=== PATIENT | female | born 1970 | race Hispanic/Latino ===

== ENCOUNTER 2018-05-18 11:33 | Emergency (ER) | payer MEDICAID ==
--- NOTE | 2018-05-18 13:37 | ED PDOC ---
HPI: Chest Pain Time Seen by Provider: 05/18/18 13:12 Chief Complaint (Nursing): Chest Pain Additional Complaint(s): Pt reports midsternal CP that started @ 10 AM today, constant, radiates to back, worse with movement of both arms. Denies SOB, cough, palpitations, OCP use, recent travel, leg pain/swelling. Past Medical History Reviewed: Nursing Documentation, Vital Signs Vital Signs: Last Vital Signs Temp 97.8 F 05/18/18 12:27 Pulse 70 05/18/18 12:27 Resp 20 05/18/18 12:27 BP 142/78 05/18/18 12:27 Pulse Ox 98 05/18/18 12:27 - Medical History PMH: No Chronic Diseases - Family History Family History: States: Unknown Family Hx - Social History Current smoker - smoking cessation education provided: No Ex-Smoker (has not smoked in the last 12 months): Yes Alcohol: Social - Allergies Allergies/Adverse Reactions: Allergies Allergy/AdvReac Type Severity Reaction Status Date / Time No Known Allergies Allergy Verified 05/18/18 12:27 ROS Risk Score for UA/NSTEMI - ROS Risk Score Age > 64: NO 3 or more CAD Risk Factors: NO Known CAD (Stenosis greater than 50%): NO Aspirin use in past 7 days: NO Severe Angina: NO EKG ST changes greater than 0.5mm: NO Positive Cardiac Marker: NO ROS Score: 0 Risk %: 5% Review of Systems Constitutional: Negative for: Fever, Chills Cardiovascular: Positive for: Chest Pain. Negative for: Palpitations Respiratory: Negative for: Cough, Shortness of Breath Gastrointestinal: Negative for: Nausea, Vomiting, Abdominal Pain, Diarrhea Genitourinary Female: Negative for: Dysuria, Hematuria Musculoskeletal: Positive for: Back Pain Skin: Negative for: Rash, Lesions Neurological: Negative for: Headache Physical Exam - Reviewed Nursing Documentation Reviewed: Yes Vital Signs Reviewed: Yes - Physical Exam Appears: Positive for: Well, No Acute Distress Head Exam: Positive for: ATRAUMATIC, NORMAL INSPECTION Skin: Positive for: Normal Color, Warm, Dry Eye Exam: Positive for: Normal appearance, EOMI, PERRL Cardiovascular/Chest: Positive for: Regular Rate, Rhythm. Negative for: Chest Non Tender (Minimal midsternal chest tenderness) Respiratory: Positive for: Normal Breath Sounds. Negative for: Rales, Rhonchi, Wheezing Back: Positive for: Normal Inspection. Negative for: L CVA Tenderness, R CVA Tenderness Extremity: Positive for: Normal ROM Neurologic/Psych: Positive for: Alert, Oriented - Laboratory Results Result Diagrams: 05/18/18 14:00 05/18/18 14:00 - ECG O2 Sat by Pulse Oximetry: 98 Medical Decision Making Medical Decision Makin yo female with midsternal chest pain. - labs - EKG - CXR Time: 1700 Patient is being endorsed from provider to Dr. Elizabeth Boyer. Disposition - Patient ED Disposition Is Patient to be Admitted: Transfer of Care - Disposition Disposition: Transfer of Care Disposition Time: 17:00 Forms: [employer] (Mauritanian) Patient Signed Over To: Elizabeth Boyer
[2018-05-18 14:27] LABS: BASO # 0.1 K/uL (0.0-0.2); BASO % 1.1 % (0.0-2.0); EOS # 0.2 K/uL (0.0-0.7); EOS % 1.9 % (0.0-4.0); HEMOGLOBIN 13.6 g/dL (12.0-16.0); LYMPH # 2.6 K/uL (1.0-4.3); LYMPH % 22.2 % (20.0-40.0); MEAN CELL VOLUME 86.7 fl (81.0-99.0); MEAN CORPUSCULAR HEMOGLOBIN 28.5 pg (27.0-31.0); MEAN CORPUSCULAR HGB CONC 32.8 g/dL (33.0-37.0); MEAN PLATELET VOLUME 10.2 fl (7.2-11.7); MONO # 0.5 K/uL (0.0-0.8); MONO % 4.4 % (0.0-10.0); NEUT # 8.3 K/uL (1.8-7.0); NEUT % 70.4 % (50.0-75.0); NRBC % 0.1 % (0.0-0.0); RBC 4.77 Mil/uL (3.80-5.20); RED CELL DISTRIBUTION WIDTH 14.5 % (11.5-14.5); WHITE BLOOD COUNT 11.8 K/uL (4.8-10.8)
[2018-05-18 14:35] LABS: ALB/GLOB RATIO 1.2 (1.0-2.1); ALBUMIN 4.2 g/dL (3.5-5.0); ALT/SGPT 32 U/L (9-52); AST/SGOT 29 U/L (14-36); BLOOD UREA NITROGEN 13 mg/dl (7-17); CALCIUM 9.8 mg/dL (8.4-10.2); GFR NON-AFRICAN AMERICAN > 60
--- NOTE | 2018-05-18 14:44 | RAD ---
Date of service: 05/18/2018 HISTORY: Midsternal CP COMPARISON: No prior. TECHNIQUE: Chest PA and lateral FINDINGS: LUNGS: No active pulmonary disease. PLEURA: No significant pleural effusion identified. No pneumothorax apparent. CARDIOVASCULAR: No aortic atherosclerotic calcification present. Normal cardiac size. No pulmonary vascular congestion. OSSEOUS STRUCTURES: No significant abnormalities. VISUALIZED UPPER ABDOMEN: Normal. OTHER FINDINGS: None. IMPRESSION: No active disease.
[2018-05-18 15:35] LABS: PROTHROMBIN TIME 11.4 Seconds (9.8-13.1)
[2018-05-18 15:53] LABS: D DIMER < 200 ng/mlDDU (0-230)
--- NOTE | 2018-05-18 17:13 | ED PDOC ---
- Laboratory Results Result Diagrams: 05/18/18 14:00 05/18/18 14:00 Lab Results: PT 11.4 Seconds (9.8-13.1) 05/18/18 15:18 INR 1.0 05/18/18 15:18 APTT 33.0 Seconds (25.6-37.1) 05/18/18 15:18 D-Dimer, Quantitative < 200 ng/mlDDU (0-230) 05/18/18 15:18 Troponin I < 0.0120 ng/mL (0.00-0.120) 05/18/18 14:00 Total Bilirubin 0.6 mg/dl (0.2-1.3) 05/18/18 14:00 AST 29 U/L (14-36) 05/18/18 14:00 ALT 32 U/L (9-52) 05/18/18 14:00 Alkaline Phosphatase 71 U/L (38-126) 05/18/18 14:00 Total Protein 7.6 G/DL (6.3-8.2) 05/18/18 14:00 Albumin 4.2 g/dL (3.5-5.0) 05/18/18 14:00 Globulin 3.4 gm/dL (2.2-3.9) 05/18/18 14:00 Albumin/Globulin Ratio 1.2 (1.0-2.1) 05/18/18 14:00 - ECG O2 Sat by Pulse Oximetry: 98 Medical Decision Making Medical Decision Making: Time: 1700 Patient is being endorsed to provider from Dr. Erin Lima. Pending Troponin. 1900 Repeat troponin negative Disposition - Clinical Impression Clinical Impression: Chest pain - POA Present On Arrival: None - Disposition Disposition: Routine/Home Disposition Time: 19:00 Condition: STABLE Additional Instructions: PLEASE STOP TAKING DIET MEDICATIONS FOLLOWUP WITH YOUR DOCTOR PRIOR TO STARTING ANY OTHER DIET PROGRAMS Instructions: Chest Pain That Is Not Caused by the Heart (DC) Forms: [facility] ED School/Work Excuse
[2018-05-18 20:09] VITALS: BP 143/87; PULSE 90; RESP 20; TEMP 98.2
[2018-05-18 21:04] VITALS: O2SAT 98
--- NOTE | 2018-05-19 20:28 | CARD ---
APPROVED REPORT Date of service: 05/18/2018 EKG Measurement Heart [id number] <Conclusion> Normal sinus rhythm Nonspecific ST abnormality Abnormal ECG
== END 2018-05-18 20:15 | disposition home or self-care (01) ==
LOC: H.ER 11:33
DX: R07.9 Chest pain, unspecified (principal); Z87.891 Personal history of nicotine dependence